=== PATIENT | female | born 2000 | race Two or more races ===

== ENCOUNTER 2020-02-07 14:32 | Inpatient (IN) | payer OTHER ==
[~2020-02-07] VITALS: Ht 149.9 cm; Wt 69.9 kg
[2020-02-08] MEDS ORDERED: PRENATAL + DHA1 EAC1 PO (08:09)
== END 2020-02-09 11:10 | disposition home or self-care (01) | DRG 819 ==
LOC: LDR 14:32
PROVIDERS: ADMIT Obstetrics & Gynecology; ATTEND Obstetrics & Gynecology
PROC: 4A1HXCZ Monitoring of Products of Conception, Cardiac Rate, External Approach (ICD-10-PCS; 2020-02-07)
PROC: 0UVC7ZZ Restriction of Cervix, Via Natural or Artificial Opening (ICD-10-PCS; principal; 2020-02-08 15:00)
DX: O34.32 Maternal care for cervical incompetence, second trimester (principal); Z20.828 Contact with and (suspected) exposure to other viral communicable diseases

== ENCOUNTER 2020-03-24 22:07 | Inpatient (IN) | payer OTHER ==
[~2020-03-24] VITALS: Ht 160 cm; Wt 0.9 kg
[~2020-03-24 22:07] MED LIST: PRENATAL + DHA1 EAC1 PO
[2020-03-24] MEDS ORDERED: CHILDREN'S ASPI81 MG PO (22:12)
[2020-03-24] MEDS ORDERED: PROMETRIUM200 MG PO (22:13)
== END 2020-03-30 14:00 | disposition home or self-care (01) | DRG 786 ==
LOC: OBS/DEL 22:07 → LDR 03-25 03:09 → OB/GYN 03-25 03:09 → O/R 03-27 08:27 → OB/GYN 03-27 08:44
PROVIDERS: ADMIT Obstetrics & Gynecology; ATTEND Obstetrics & Gynecology
PROC: 4A1HXFZ Monitoring of Products of Conception, Cardiac Rhythm, External Approach (ICD-10-PCS; 2020-03-25)
PROC: BY4CZZZ Ultrasonography of Second Trimester, Single Fetus (ICD-10-PCS; 2020-03-25)
PROC: 0UPD0HZ Removal of Contraceptive Device from Uterus and Cervix, Open Approach (ICD-10-PCS; 2020-03-27)
PROC: 10D00Z1 Extraction of Products of Conception, Low, Open Approach (ICD-10-PCS; principal; 2020-03-27 10:30)
DX: O42.112 Preterm premature rupture of membranes, onset of labor more than 24 hours following rupture, second trimester (principal); O34.32 Maternal care for cervical incompetence, second trimester; Z3A.26 26 weeks gestation of pregnancy; Z37.0 Single live birth; Z20.828 Contact with and (suspected) exposure to other viral communicable diseases; O65.5 Obstructed labor due to abnormality of maternal pelvic organs